=== PATIENT | male | born 1985 | race Caucasian/White ===

== ENCOUNTER 2023-10-01 20:22 | Emergency (ER) | payer SELFPAY ==
[~2023-10-01] VITALS: Ht 172.7 cm; Wt 78.0 kg
[2023-10-01 20:33] VITALS: BP 130/56; O2SAT 99
[2023-10-01] MEDS ORDERED: ACETAMINOPHEN 325MG TABLET PO ONE (20:45)
[2023-10-01] MEDS ORDERED: IBUP-2029 MT (23:37)
[2023-10-01] MEDS ORDERED: CYCL10TA21 MT (23:37)
[2023-10-02 00:15] VITALS: PULSE 75; RESP 17
[2023-10-02 00:17] VITALS: TEMP 98.3
== END 2023-10-02 00:18 | disposition home or self-care (01) ==
LOC: ER 20:22
DX: M25.512 Pain in left shoulder (principal); Z98.890 Other specified postprocedural states
CPT/HCPCS: 73030; 99283; A4565